=== PATIENT | female | born 2000 | race Caucasian/White ===

== ENCOUNTER 2022-01-31 00:03 | Emergency (ER) | payer BC ==
[~2022-01-31] VITALS: Ht 160 cm; Wt 52.3 kg
--- NOTE | 2022-01-31 00:10 | NUR ---
one safe place notified and sending advocate to er.
[2022-01-31 00:13] VITALS: BP 114/77
== END 2022-01-31 02:14 | disposition left against medical advice (07) ==
LOC: EEVIPCON 00:05 → ER 00:05
DX: T74.21XA Adult sexual abuse, confirmed, initial encounter (principal); Z88.0 Allergy status to penicillin
CPT/HCPCS: 99283

== ENCOUNTER 2022-01-31 12:13 | Emergency (ER) | payer OTHER, BC ==
[~2022-01-31] VITALS: Ht 160 cm; Wt 52.3 kg
[2022-01-31 12:58] VITALS: BP 112/62
== END 2022-01-31 17:19 | disposition home or self-care (01) ==
LOC: ER 12:14 → EEVIPCON 12:14 → ER 17:19
DX: Z04.71 Encounter for examination and observation following alleged adult physical abuse (principal); Z88.0 Allergy status to penicillin
CPT/HCPCS: 99284